=== PATIENT | female | born 1955 | race Caucasian/White ===

== ENCOUNTER → 2016-04-28 | Outpatient (REF) | payer OTHER | LOC: M SFHCWAGY 09:13 | PROVIDERS: ATTEND Nurse Practitioner Women's Health | DX: Z12.4 Encounter for screening for malignant neoplasm of cervix (principal) ==

== ENCOUNTER → 2016-04-28 | Outpatient (CLI) | payer OTHER ==
--- NOTE | 2016-04-28 10:29 | REPMRS ---
Patient History The patient states she had a clinical breast exam in Patient is postmenopausal. No known family history of cancer. Implants in both breasts, 1997. Digital Woman Screen Mammo: April 28, 2016 - Exam #: [id number] Bilateral CC and MLO view(s) were taken. Technologist: Ana Whalen, Technologist Prior study comparison: January 30, 2015, digital woman screen mammo performed at [facility]. November 23, 2012, digital woman screen mammo performed at [facility] to [facility]. FINDINGS: There are scattered fibroglandular densities. There is a fairly symmetric fibroglandular pattern in both breasts. There has been no interval development of masses, areas of architectural distortion or clusters of microcalcifications typical of malignancy. No significant changes when compared with prior studies. ASSESSMENT: BI-RADS/ACR category 2 mammogram. Benign finding(s). Recommendation Routine screening mammogram of both breasts in 1 year (for women over age 40). This mammogram was interpreted with the aid of an FDA-approved computer-aided dectection system. Electronically Signed By: Kareem Beltran MD 04/28/16 [id number]
--- NOTE | 2016-04-29 07:55 | DEXA ---
AP SPINE L1 - L4 0.892 -2.4 -0.7 LT FEMUR TOTAL 0.832 -1.4 -0.1 RT FEMUR TOTAL 0.907 -0.8 0.5 TOTAL BODY TOTAL OTHER DUAL FEMUR FRAX* ASSESSMENT Risk factors: None. 10 year probability of fracture Major osteoporotic fracture 8.5 % Hip fracture 1.2 % COMMENTS: There is low bone density of the spine and hips. The decreased density of the spine does represent a significant change. The decreased density of the left hip does represent a significant change. The decreased density of the right hip does represent a significant change. The density of the spine has increased 1.2% since the initial exam on 02/2006. The spine density has decreased 3.6% since the most recent exam on 09/2008. The density of the left hip has decreased 3.1% since initial exam on 02/2006. The density of the left hip has decreased 2.9% since the most recent exam on 2008. The density of the right hip has decreased 3.5% since the initial exam on 2005. The density of the right hip has decreased 5.6% since the most recent exam on 2008. FOLLOW-UP: Recommendation for the next bone density exam: 2 years. JOSE
== END ==
LOC: M WHC 09:09
PROVIDERS: ATTEND Nurse Practitioner Women's Health
DX: Z12.31 Encounter for screening mammogram for malignant neoplasm of breast (principal); M81.0 Age-related osteoporosis without current pathological fracture; Z92.29 Personal history of other drug therapy; Z78.0 Asymptomatic menopausal state
CPT/HCPCS: 77080; G0202

== ENCOUNTER → 2016-08-31 | Outpatient (REF) | payer OTHER ==
[2016-08-31 18:32] LABS: BASO % 0.9 % (0.0-1.0); EOS # 0.1 K/mm3 (0.0-0.50); LARGE UNSTAINED CELL # 0.1 K/mm3 (0.0-0.4); LARGE UNSTAINED CELL % 1.8 % (0.0-4.0); LYMPH # 1.8 K/mm3 (1.5-4.5); LYMPH % 29.1 % (24.0-44.0); MEAN CORPUSCULAR HEMOGLOBIN 31.7 pg (27.0-33.0); MEAN CORPUSCULAR HGB CONC 33.5 g/dl (32.0-36.5); MEAN CORPUSCULAR VOLUME 94.5 fl (80.0-96.0); MONO # 0.4 K/mm3 (0.0-0.8); MONO % 6.3 % (0.0-5.0); NEUTROPHILS # 3.8 K/mm3 (1.8-7.7); PLATELET COUNT, AUTOMATED 303 k/mm3 (150-450); RED CELL DISTRIBUTION WIDTH 11.5 % (11.5-14.5); WHITE BLOOD COUNT 6.2 K/mm3 (4.0-10.0)
[2016-08-31 20:21] LABS: ALBUMIN/GLOBULIN RATIO 1.29 (1.00-1.93); ALKALINE PHOSPHATASE 93 U/L (45-117); ALT/SGPT 29 U/L (12-78); ANION GAP 6 MEQ/L (8-16); AST/SGOT 24 U/L (15-37); BILIRUBIN,TOTAL 0.5 MG/DL (0.2-1.0); BLOOD UREA NITROGEN 16 MG/DL (7-18); CALCIUM LEVEL 9.2 MG/DL (8.8-10.2); CARBON DIOXIDE LEVEL 27 MEQ/L (21-32); CHLORIDE LEVEL 106 MEQ/L (98-107); CHOLESTEROL LEVEL 198 MG/DL (<200); CREATININE FOR GFR 0.81 MG/DL (0.55-1.02); GLOMERULAR FILTRATION RATE > 60.0 (>45); GLUCOSE, FASTING 88 MG/DL (80-110); POTASSIUM SERUM 3.9 MEQ/L (3.5-5.1); SODIUM LEVEL 139 MEQ/L (136-145); TOTAL PROTEIN 7.1 GM/DL (6.4-8.2); TRIGLYCERIDES LEVEL 80 MG/DL (<150)
== END ==
LOC: M LABDRAW1 17:22
PROVIDERS: ATTEND Nurse Practitioner Family
DX: I10 Essential (primary) hypertension (principal); E78.5 Hyperlipidemia, unspecified

== ENCOUNTER → 2017-07-29 | Outpatient (REF) | payer OTHER ==
[2017-07-29 13:04] LABS: ALBUMIN 3.9 GM/DL (3.2-5.2); ALBUMIN/GLOBULIN RATIO 1.22 (1.00-1.93); ALKALINE PHOSPHATASE 89 U/L (45-117); ALT/SGPT 31 U/L (12-78); ANION GAP 6 MEQ/L (8-16); AST/SGOT 29 U/L (7-37); BILIRUBIN,TOTAL 0.5 MG/DL (0.2-1.0); BLOOD UREA NITROGEN 12 MG/DL (7-18); CALCIUM LEVEL 8.8 MG/DL (8.8-10.2); CARBON DIOXIDE LEVEL 26 MEQ/L (21-32); CHLORIDE LEVEL 110 MEQ/L (98-107); CREATININE FOR GFR 0.68 MG/DL (0.55-1.30); FREE T4 0.78 NG/DL (0.76-1.46); GLOMERULAR FILTRATION RATE > 60.0 (>45); GLUCOSE, FASTING 90 MG/DL (70-100); POTASSIUM SERUM 4.5 MEQ/L (3.5-5.1); SODIUM LEVEL 142 MEQ/L (136-145); THYROID STIMULATING HORMONE 0.664 uIU/ML (0.358-3.740); TOTAL PROTEIN 7.1 GM/DL (6.4-8.2)
== END ==
LOC: M LABDRAW1 11:57
DX: I10 Essential (primary) hypertension (principal)
CPT/HCPCS: 84443

== ENCOUNTER → 2018-03-10 | Outpatient (REF) | payer OTHER ==
[2018-03-10 14:34] LABS: ALBUMIN 3.9 GM/DL (3.2-5.2); ALT/SGPT 25 U/L (12-78); BILIRUBIN,TOTAL 0.7 MG/DL (0.2-1.0); BLOOD UREA NITROGEN 14 MG/DL (7-18); CALCIUM LEVEL 9.1 MG/DL (8.8-10.2); CARBON DIOXIDE LEVEL 27 MEQ/L (21-32); CHLORIDE LEVEL 106 MEQ/L (98-107); CREATININE FOR GFR 0.64 MG/DL (0.55-1.30); GLOMERULAR FILTRATION RATE > 60.0 (>45); GLUCOSE, FASTING 90 MG/DL (70-100); POTASSIUM SERUM 4.3 MEQ/L (3.5-5.1); SODIUM LEVEL 140 MEQ/L (136-145); TOTAL 25(OH) VITAMIN D 43.2 NG/ML (30.0-100.0); TOTAL PROTEIN 6.9 GM/DL (6.4-8.2)
== END ==
LOC: M LABDRAW1 12:11
PROVIDERS: ATTEND Nurse Practitioner Family
DX: E55.9 Vitamin D deficiency, unspecified (principal); I10 Essential (primary) hypertension

== ENCOUNTER → 2020-03-01 | Outpatient (CLI) | payer OTHER ==
[~2020-03-01] MED LIST: PROHANCE 279.3MG/ML 5ML VIAL As Ordered ONE
--- NOTE | 2020-03-01 16:29 | REPVR ---
PROCEDURE INFORMATION: Exam: MR Neck Without and With Contrast Exam date and time: 03/01/2020 2:03 PM Age: 64 years old Clinical indication: Mass, lump, or swelling; Other: Back of neck; Patient HX: Soft tissue mass t1-t2 area. Area marked. ; Additional info: Middle of back of neck w/ swelling / lump TECHNIQUE: Imaging protocol: MR images of the neck without and with intravenous contrast. Contrast material: PROHANCE; Contrast volume: 10 ml; Contrast route: INTRAVENOUS (IV); COMPARISON: No relevant prior studies available. FINDINGS: Nasopharynx: Unremarkable. Oropharynx: Unremarkable. Hypopharynx: Unremarkable. Larynx: Unremarkable. Normal epiglottis. Submandibular/Parotid glands: Unremarkable. Retropharyngeal space: No prevertebral soft tissue swelling. Vasculature: The carotid and vertebral arteries are patent. Lymph nodes: No lymphadenopathy. Soft tissues: Markers were placed over the posterior neck at C5 and T1 and T6 levels. And between the C5 and T1 markers at there is a lipomatosis intensity lesion in the subcutaneous adipose tissue superficial to the underlying fascia which appears intact. The lesion measures approximately 3.5 cm in width by 1.5 cm AP x 3.2 cm cranial caudal. On the post gadolinium sequences it enhances slightly less than the surrounding adipose tissue. Vascular structures are seen within the lesion. Bones/joints: There is straightening of the normal cervical lordosis. There is no significant disc space narrowing, spinal canal stenosis or neural foraminal narrowing. IMPRESSION: The lesion in the subcutaneous soft tissues midline posterior neck most likely represents a lipoma. It measures 3.5 x 1.5 x 3.2 cm. It extends from the C6-C7 disc space level to the mid T1 level. It does not appear to invade the underlying fascia or have aggressive features. It enhances slightly less than the adjacent adipose tissue. Electronically signed by: Elicia Oneill On 03/01/2020 16:29:43 PM
== END ==
LOC: M RAD 13:59
PROVIDERS: ATTEND Plastic Surgery Surgery of the Hand
DX: R22.1 Localized swelling, mass and lump, neck (principal)
CPT/HCPCS: 70543; A9576

== ENCOUNTER → 2020-09-01 | Outpatient (CLI) | payer OTHER ==
[~2020-09-01] MED LIST changes: +AMLO1TAB25 PO; +ATEN25TA PO; +CALCCAP4 PO; +ECOT81TA5 PO; +FOSA70TA PO; -PROHANCE 279.3MG/ML 5ML VIAL As Ordered ONE
== END ==
LOC: M LABSMTC 08:22
PROVIDERS: ATTEND Anesthesiology
DX: Z01.818 Encounter for other preprocedural examination (principal); Z11.52 Encounter for screening for COVID-19

== ENCOUNTER → 2020-09-05 | Outpatient (CLI) | payer MEDICARE | LOC: M LABSMTC 13:14 | PROVIDERS: ATTEND Anesthesiology | DX: Z01.818 Encounter for other preprocedural examination (principal); Z11.52 Encounter for screening for COVID-19 ==

== ENCOUNTER 2020-09-06 10:49 | Day surgery (SDC) | payer MEDICARE ==
[~2020-09-06] VITALS: Ht 162.6 cm; Wt 51.3 kg
[~2020-09-06 10:49] MED LIST changes: +NS 1,000 ML IV ONE
[2020-09-06] MEDS ORDERED: LIDOCAINE 2% 100MG/5ML SDV (FOR ANES.) As Ordered ONE (11:42)
[2020-09-06] MEDS ORDERED: propofoL 200 MG/20 ML VIAL As Ordered ONE (11:42)
--- NOTE | 2020-09-06 12:09 | ROOR ---
Patient Name: Joyce Page Procedure Date: 09/06/2020 11:41 AM Date of : 1955 Age: 65 Room: [facility] Gender: Female Note Status: Finalized Procedure: Colonoscopy Indications: High risk colon cancer surveillance: Personal history of colonic polyps, Last colonoscopy: June 2013 Providers: Ziyad Álvarez MD Referring MD: Sonja Nunez NP Requesting Provider: Medicines: Monitored Anesthesia Care Complications: No immediate complications. Procedure: Pre-Anesthesia Assessment: - The heart rate, respiratory rate, oxygen saturations, blood pressure, adequacy of pulmonary ventilation, and response to care were monitored throughout the procedure. The Colonoscope was introduced through the anus and advanced to the cecum, identified by appendiceal orifice and ileocecal valve. The colonoscopy was performed without difficulty. The patient tolerated the procedure well. The quality of the bowel preparation was good. Findings: The perianal and digital rectal examinations were normal. A 5 mm polyp was found in the cecum. The polyp was sessile. The polyp was removed with a cold snare. Resection and retrieval were complete. To prevent bleeding after the polypectomy, one hemostatic clip was successfully placed. The exam was otherwise without abnormality. The colon (entire examined portion) was redundant. Impression: - One 5 mm polyp in the cecum, removed with a cold snare. Resected and retrieved. Clip was placed. - The colonoscopy examination was otherwise normal. Recommendation: - Repeat colonoscopy in 5 years for surveillance. Procedure Code(s): --- Professional --- 00089, Colonoscopy, flexible; with removal of tumor(s), polyp(s), or other lesion(s) by snare technique Diagnosis Code(s): --- Professional --- K63.5, Polyp of colon Z86.010, Personal history of colonic polyps CPT copyright 2019 [employer]. All rights reserved. The codes documented in this report are preliminary and upon roofer apprentice review may be revised to meet current compliance requirements. Ziyad Álvarez MD Ziyad Álvarez MD 09/06/2020 12:08:51 PM Electronically signed by Ziyad Álvarez MD Number of Addenda: 0 Note Initiated On: 09/06/2020 11:41 AM Estimated Blood Loss: Estimated blood loss: none.
[2020-09-06 12:20] VITALS: BP 112/71
== END 2020-09-06 12:35 | disposition home or self-care (01) ==
LOC: M OPP 10:49
PROVIDERS: ATTEND Internal Medicine Gastroenterology
DX: Z12.11 Encounter for screening for malignant neoplasm of colon (principal); Z86.010 Personal history of colon polyps; D12.0 Benign neoplasm of cecum; Q43.8 Other specified congenital malformations of intestine; I10 Essential (primary) hypertension; M81.0 Age-related osteoporosis without current pathological fracture; Z87.891 Personal history of nicotine dependence; Z79.82 Long term (current) use of aspirin; Z79.899 Other long term (current) drug therapy; Z82.49 Family history of ischemic heart disease and other diseases of the circulatory system; Z84.1 Family history of disorders of kidney and ureter

== ENCOUNTER 2020-09-10 05:57 | Day surgery (SDC) | payer MEDICARE ==
[~2020-09-10] VITALS: Ht 162.6 cm; Wt 53.3 kg
[~2020-09-10 05:57] MED LIST changes: -NS 1,000 ML IV ONE
[2020-09-10] MEDS ORDERED: LR 1,000 ML IV ONE (06:00)
[2020-09-10] MEDS ORDERED: ceFAZolin SOD 1 GM in D5W MINI-BAG PLUS 50 ML IV ONE (06:00)
[2020-09-10] MEDS ORDERED: fentaNYL 100 MCG/2 ML INJECTION (J3010) As Ordered ONE (07:18)
[2020-09-10] MEDS ORDERED: ONDANSETRON 4MG/2ML VIAL As Ordered ONE (07:18)
[2020-09-10] MEDS ORDERED: LIDOCAINE 2% 100MG/5ML SDV (FOR ANES.) As Ordered ONE (07:18)
[2020-09-10] MEDS ORDERED: propofoL 200 MG/20 ML VIAL As Ordered ONE (07:18)
[2020-09-10] MEDS ORDERED: MIDAZOLAM INJ 2MG/2ML VIAL (J2250 PER 1MG) As Ordered ONE (07:19)
[2020-09-10] MEDS ORDERED: ROCURONIUM BROMIDE 50 MG/5 ML VIAL As Ordered ONE (07:37)
[2020-09-10] MEDS ORDERED: dexameTHASONE 4 MG/ML 1ML VIAL (J1100 PER 1MG) As Ordered ONE (07:37)
[2020-09-10] MEDS ORDERED: BUPIVACAINE LIPOSOME/PF 1.3% 20ML VIAL (13.3MG/ML)(EXPAREL)(C9290 PER1MG) As Ordered ONE (07:39)
[2020-09-10] MEDS ORDERED: ACETAMINOPHEN 1000MG 100ML IV BTL (OFIRMEV) (J0131 PER 10MG) As Ordered ONE (08:28)
[2020-09-10] MEDS ORDERED: SUGAMMADEX SODIUM 500 MG/5 ML VIAL (BRIDION) As Ordered ONE (08:28)
[2020-09-10] MEDS ORDERED: PHENYLephrine 500MCG 5ML (100MCG/ML) SYRINGE As Ordered ONE (08:33)
[2020-09-10] MEDS ORDERED: ePHEDrine SULFATE 25 MG/5 ML(5MG/ML) SYRINGE As Ordered ONE (08:33)
--- NOTE | 2020-09-10 09:25 | POST-OPPD ---
Postoperative Procedure Note Date Of Procedure: Sep 10, 2020 PREPROCEDURE DIAGNOSES: Posterior neck mass. POSTPROCEDURE DIAGNOSES: Same. PROCEDURE PERFORMED: Excision of posterior neck mass. SURGEON: Dr Westfall ANESTHESIA: General. ESTIMATED BLOOD LOSS: Approximately 5 mL. COMPLICATIONS: none. REMARKS: none. FINDINGS: posterior neck mass corresponding by measurements with MRI. SPECIMENS REMOVED: Posterior neck mass FROYLAN WESTFALL DO Sep 10, 2020 09:25
--- NOTE | 2020-09-10 09:25 | POST-OPPD ---
Postoperative Procedure Note Date Of Procedure: Sep 10, 2020 PREPROCEDURE DIAGNOSES: Posterior neck mass. POSTPROCEDURE DIAGNOSES: Same. PROCEDURE PERFORMED: Excision of posterior neck mass. SURGEON: Dr Westfall ANESTHESIA: General. ESTIMATED BLOOD LOSS: Approximately 5 mL. COMPLICATIONS: none. REMARKS: none. FINDINGS: posterior neck mass corresponding by measurements with MRI. SPECIMENS REMOVED: Posterior neck mass This is a 65 year-old female with palpable mass on posterior neck. MRI confirming the mass which is strictly subcutaneous and does not invade muscle layer or bony structures of the neck. She has intermittent pressure from the mass. It is palpable, sized 3 cm round. Slow growing. Patient wishes to have it removed. Risks, benefits, and alternatives discussed with the patient. She is ready to proceed. After obtaining informed consent patient brought into the operating room, placed in supine position, perioperative antibiotics given, sequential stockings placed in the lower calves, general anesthesia induced. Patient was placed in the prone position with all bony prominences protected. She was prepped and draped in the usual sterile fashion. Incision carried out through the most prominent portion of the mass along the posterior neck. We oriented horizontally so the incision to be masked by an existing wrinkle. Sharp and blunt dissection was done and fully encapsulated fatty mass identified. Multiple adhesions divided using Metzenbaum scissors and electrocautery. The mass is completely subcutaneous, not invading surrounding structures or muscle. Hemostasis is obtained using electrocautery. Mass excised entirely. Wound is irrigated with sterile saline antibiotic solution. Surgicel placed in the cavity. Incision closed in layers with interrupted 3-0 Vicryl sutures for subcutaneous layer followed by 3-0 Monocryl sutures for the skin. Prinio dressing and pressure dressing applied. Patient extubated in operating room, tolerated procedure well, and transferred to recovery room in stable condition. FROYLAN WESTFALL DO Sep 10, 2020 09:25
[2020-09-10] MEDS ORDERED: TRAM50TA2 PO (09:32)
[2020-09-10] MEDS ORDERED: MEPERIDINE INJ 25 MG/ML VIAL (J2175) IV PRN (09:40)
[2020-09-10] MEDS ORDERED: ONDANSETRON 4MG/2ML VIAL IV PRN (09:40)
[2020-09-10] MEDS ORDERED: oxyCODONE 5MG TAB PO PRN (09:40)
[2020-09-10] MEDS ORDERED: fentaNYL 100 MCG/2 ML INJECTION (J3010) IV PRN (09:40)
[2020-09-10] MEDS ORDERED: LR 1,000 ML IV SCH (09:40)
[2020-09-10] MEDS ORDERED: METOCLOPRAMIDE INJ 10MG/2ML VIAL (J2765 PER 1) IV PRN (09:40)
[2020-09-10 11:15] VITALS: BP 145/70
[2020-09-10] MEDS ORDERED: LACRILUBE (AKWA TEARS) OPHTH OINT 3.5 GM As Ordered ONE (12:25)
== END 2020-09-10 11:15 | disposition home or self-care (01) ==
LOC: M SDC 05:57
PROVIDERS: ATTEND Plastic Surgery Surgery of the Hand
DX: D17.0 Benign lipomatous neoplasm of skin and subcutaneous tissue of head, face and neck (principal); I10 Essential (primary) hypertension; M81.0 Age-related osteoporosis without current pathological fracture; Z79.82 Long term (current) use of aspirin; Z79.899 Other long term (current) drug therapy
CPT/HCPCS: 11423; 88304; C9290; J0131; J0690; J1100; J2250; J2370; J2405; J3010

== ENCOUNTER → 2021-01-07 | Outpatient (CLI) | payer MEDICARE ==
[~2021-01-07] MED LIST changes: +TRAM50TA2 PO
--- NOTE | 2021-01-07 12:03 | REP ---
INDICATION: NICOTINE DEPEND. COMPARISON: None. TECHNIQUE: Axial noncontrast images from the thoracic inlet to the upper abdomen using low-dose lung screening technique (LDCT). As per the protocol only lung window images were sent to the read station for interpretation FINDINGS: There is minimal biapical pleuroparenchymal scarring. There is an incidental calcified granuloma in the left upper lobe. There are no abnormal lung nodules. Grossly, the mediastinum and pulmonary seth are within normal limits grossly, the imaged upper abdomen and imaged osseous structures are within normal limits. IMPRESSION: Lung rads category 1 low-dose [address] CT examination of the lungs. No abnormal nodules. Follow-up as per the revised Fleischner society criteria. <Electronically signed by Yonathan Wiseman > 01/07/21 [id number]
== END ==
LOC: M RAD 07:52
PROVIDERS: ATTEND Registered Nurse
DX: Z12.2 Encounter for screening for malignant neoplasm of respiratory organs (principal); F17.210 Nicotine dependence, cigarettes, uncomplicated

== ENCOUNTER → 2021-07-18 | Outpatient (CLI) | payer MEDICARE | LOC: M WHC 07:30 | PROVIDERS: ATTEND Registered Nurse | DX: Z12.31 Encounter for screening mammogram for malignant neoplasm of breast (principal); M81.0 Age-related osteoporosis without current pathological fracture ==